=== PATIENT | male | born 1990 | race Caucasian/White ===

== ENCOUNTER 2017-03-20 09:43 | Emergency (ER) | payer BC ==
[2017-03-20 09:48] VITALS: TEMP 98.4; BMI 25.0
--- NOTE | 2017-03-20 09:49 | PDOC ---
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 Pt was standing when both arms became clonic, eyes rolled back, and he fell onto the back of his head onto a hard surface. He was seizing for 2-3 minutes on the floor. No loss of urinary or fecal incontinence. EMS was called, and he was given Versed en route to the ED. Collateral information obtained from [facility], where he presented last Thursday for LOC and unwitnessed seizure. Labs and head CT wnl. Utox +amphetamines, + oxycodone. Past History - Past Medical History Allergies/Adverse Reactions: Allergies Allergy/AdvReac Type Severity Reaction Status Date / Time No Known Allergies Allergy Verified 03/20/17 12:17 Home Medications: Ambulatory Orders Levetiracetam [Keppra] 500 mg PO BID 03/20/17 COPD: No Seizures: Yes - Suicide/Smoking/Psychosocial Hx Smoking History: Never smoked Hx Alcohol Use: No Drug/Substance Use Hx: No Substance Use Type: None Review of Systems - Review of Systems Able to Perform ROS?: No (lethargic, confused) *Physical Exam - Vital Signs Last Vital Signs Temp Pulse Resp BP Pulse Ox 98.4 F 97 H 18 132/91 100 03/20/17 09:44 03/20/17 09:44 03/20/17 09:44 03/20/17 09:44 03/20/17 09:44 - Physical Exam General Appearance: Yes: Moderate Distress HEENT: positive: EOMI, KIERRA, Other (no signs of trauma) Neck: positive: Supple, Other (c-collar) Respiratory/Chest: positive: Lungs Clear, Normal Breath Sounds Cardiovascular: positive: Regular Rhythm, Regular Rate, S1, S2 Gastrointestinal/Abdominal: positive: Normal Bowel Sounds, Soft. negative: Tender Musculoskeletal: positive: Normal Inspection, Other (spontaneously movign all 4 extremities) Integumentary: negative: Ecchymosis, Bruising Neurologic: positive: Fully Oriented, Alert, Responsive ED Treatment Course - LABORATORY CBC & Chemistry Diagram: 03/20/17 11:33 03/20/17 11:33 Medical Decision Making - Medical Decision Making 03/20/17 20:42 26yo man with seizures and fall from standing position who presents altered. Will obtain stat non-contrast head CT, non-con cervical spine, and CXR. Morphine for pain. Labs: -CBC, CMP, Mg, lactate -Utox *Head CT shows occipital fracture and subdural hematoma with small midline shift. Transfer to [facility] initiated. Accepting physician Dr. Mcgovern. *DC/Admit/Observation/Transfer Diagnosis at time of Disposition: transfer - Referrals - Patient Instructions - Post Discharge Activity
[2017-03-20] MEDS ORDERED: SODIUM CHLORIDE 1,000 ML IV STA (10:06)
--- NOTE | 2017-03-20 10:08 | PDOC ---
Attending Attestation - Medical Decision Making 03/20/17 11:23 First call placed to Dr. Vega Hilton at 11:23. Awaiting call back. Documentation prepared by Lianet Tong, acting as medical insurance coding specialist for Jasvir Mckeon MD. <Lianet Tong - Last Filed: 03/20/17 11:23> - Resident Resident Name: Alee Ardon - ED Attending Attestation I have performed the following: I have examined & evaluated the patient, The case was reviewed & discussed with the resident, I agree w/resident's findings & plan, Exceptions are as noted - HPI HPI: 03/20/17 10:00 24yo M hx recent admission to [facility] for 4 days for new seizures p/w seizure. History is limited as pt is lethargic due to versed given by EMS. History from pt's cashier assistant who witnessed the seizure. He reports the pt was standing, when he suddenly fell, arms raised and were rigid, followed by total body shaking. He reports it lasted for 2-3 minutes. EMS was activated and pt was agitated and combative on their arrival, prompting them to give him versed 5mg IM. Pt is currently lethargic and slightly combative, we are unable to obtain further history. - Physicial Exam PE: 03/20/17 10:36 GENERAL: lethargic, confused, in no acute distress HEAD: No signs of trauma EYES: PERRLA, sclera anicteric, conjunctiva clear ENT: Auricles normal inspection NECK: Normal ROM, supple, no lymphadenopathy, JVD, or masses LUNGS: Breath sounds equal, clear to auscultation bilaterally. No wheezes, and no crackles HEART: Regular rate and rhythm, normal S1 and S2, no murmurs, rubs or gallops ABDOMEN: Soft, nontender, normoactive bowel sounds. No guarding, no rebound. No masses EXTREMITIES: Normal range of motion, no edema. No clubbing or cyanosis. No cords, erythema, or tenderness NEUROLOGICAL: pt not currently cooperative with exam SKIN: Warm, Dry, normal turgor, no rashes or lesions noted. - Medical Decision Making 03/20/17 10:38 26-year-old male with a history of recent admission to [facility] for newly diagnosed seizures presents with a seizure. Vitals are unremarkable. Exam grossly unremarkable however unable to perform neurologic exam due to patient confusion. Will obtain more collateral and in the meantime obtain blood work and get a CT scan of the head and cervical spine and chest x- ray. 03/20/17 11:13 Patient's brother found a bottle unlabeled pills and an unlabeled bag of pills in the patient's backpack. Upon looking up these pills online based on the scoring, one of them is 15 mg of oxycodone and the other is amphetamine and dextroamphetamine 20 mg. The patient is currently at CT scan. The family asked what the pills were, however I informed them that without consent from the pt, I could not share that information. 03/20/17 11:49 CT had with small left sided subdural, about 6 mm with mild mass effect and midline shift. Patient also has a occipital bone fracture. Neurosurgery has been contacted, we spoke with who recommends transfer to tertiary care center. Patient was just admitted to [facility], we are contacting the transfer center for transfer right now. In the meantime head of the bed is up at 30. Blood pressure is 138/84. Will give Keppra. 03/20/17 12:09 Patient is currently awake and oriented 3. He is reporting a headache but has no other complaints. 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 He states that he takes Keppra 500 mg twice a day but did not take his dose this morning. With regards to the pills found in his bag the patient reports she been holding those for a friend. When asked where he got pills from, he states "I know someone." He states he was not prescribed those pills by a medical provider. He states he has taken oxycodone in the past for pain but not recently. Denies any tobacco, alcohol, illicit drug use. On exam: GENERAL: Awake, alert, and fully oriented, in no acute distress HEAD: No signs of trauma EYES: PERRLA, EOMI, sclera anicteric, conjunctiva clear ENT: Auricles normal inspection, hearing grossly normal, nares patent, oropharynx clear without exudates. Moist mucosa NECK: c-collar in place BACK: no midline cervical, thoracic, lumbar tenderness to palpation LUNGS: Breath sounds equal, clear to auscultation bilaterally. No wheezes, and no crackles HEART: Regular rate and rhythm, normal S1 and S2, no murmurs, rubs or gallops ABDOMEN: Soft, nontender, normoactive bowel sounds. No guarding, no rebound. No masses EXTREMITIES: Normal range of motion, no edema. No clubbing or cyanosis. No cords, erythema, or tenderness NEUROLOGICAL: Normal speech, cranial nerves intact, negative pronator drift, 5/ 5 strength in all 4 extremities, normal sensation to light touch in all 4 extremities, normal cerebellar exam, normal gait, normal reflexes and tone SKIN: Warm, Dry, normal turgor, no rashes or lesions noted. Pt requesting the pills we found on him, however I told him that security is holding them as they are unlabeled narcotics. Per security, since patient has no prescription for these medications, they must be discarded. I confirmed on [employer] that he does not have prescriptions for these medications. Pt informed of this decision to discard the pills. Pt accepted by [facility] trauma attending Dr. Mcgovern. Pt has consented for transfer and ACLS team has transported patient to [facility]. <Jasvir Mckeon - Last Filed: 03/20/17 21:11>
[2017-03-20 11:41] LABS: BASOPHIL 0.3 % (0-2.0); EOSINOPHIL 0.3 % (0-4.5); MCH 27.5 pg (25.7-33.7); MCHC 33.5 g/dl (32.0-35.9); MEAN CELL VOLUME 82.1 fl (80-96); MEAN PLT VOLUME 7.3 fl (7.5-11.1); NEUTROPHILS 85.6 % (42.8-82.8); PLATELET COUNT 315 K/MM3 (134-434); RDW 13.5 % (11.9-15.9); WHITE BLOOD COUNT 15.1 K/mm3 (4.0-10.0)
[2017-03-20 12:02] LABS: ALBUMIN 4.4 g/dl (3.4-5.0); ANION GAP 8 (8-16); BILIRUBIN,TOTAL 0.4 mg/dL (0.2-1.0); CALCIUM 8.9 mg/dL (8.5-10.1); CO2 33 mmol/L (21-32); CREATININE 0.9 mg/dL (0.7-1.3); GLUCOSE,RANDOM 121 mg/dL (74-106); SGOT/AST 17 U/L (15-37); SGPT/ALT 25 U/L (12-78); TOT PROT 7.5 g/dl (6.4-8.2)
[2017-03-20 12:03] LABS: ALK PHOS 72 U/L (45-117)
[2017-03-20 12:08] LABS: INR 1.12 (0.82-1.09); PROTHROMBIN TIME (PATIENT) 12.6 SEC (9.98-11.88)
[2017-03-20] MEDS ORDERED: levETIRAcetam 500 MG/5 ML INJECTION VIAL IVPB ONE ×2 (12:09→12:23)
[2017-03-20 12:10] LABS: ACTIVATED PTT 29.1 SECONDS (26.9-34.4)
[2017-03-20] MEDS ORDERED: morphine CARPU-JECT 4 MG/1 ML DISP.SYRIN IVPUSH ONE (12:33)
[2017-03-20 12:47] VITALS: BP 120/93; PULSE 82
[2017-03-20] MEDS ORDERED: morphine SULFATE 4 MG/ML VIAL ONE (12:50)
--- NOTE | 2017-03-20 16:32 | EKG ---
Test Reason : Blood Pressure : / mmHG Vent. Rate : 062 BPM Atrial Rate : 062 BPM P-R Int : 150 ms QRS Dur : 094 ms QT Int : 380 ms P-R-T Axes : 053 051 030 degrees QTc Int : 385 ms NORMAL SINUS RHYTHM NORMAL ECG NO PREVIOUS ECGS AVAILABLE Confirmed by MD EFRAIN, YA ([id number]) on 03/20/2017 4:32:07 PM Referred By: Confirmed By:YA ZUNIGA MD
== END 2017-03-20 13:05 | disposition short-term general hospital (02) ==
LOC: JER 09:43
PROC: 3E033GC Introduction of Other Therapeutic Substance into Peripheral Vein, Percutaneous Approach (ICD-10-PCS; principal; 2017-03-20)
PROC: 3E033NZ Introduction of Analgesics, Hypnotics, Sedatives into Peripheral Vein, Percutaneous Approach (ICD-10-PCS; 2017-03-20)
PROC: 3E0337Z Introduction of Electrolytic and Water Balance Substance into Peripheral Vein, Percutaneous Approach (ICD-10-PCS; 2017-03-20)
DX: R56.9 Unspecified convulsions (principal)
CPT/HCPCS: 36415; 70450-TC; 71010-TC; 71020-TC; 72125-TC; 80053; 83605; 83735; 85025; 85610; 85730; 86850; 86900; 86901; 93005; 93010; 99285-25